=== PATIENT | female | born 1995 | race Hispanic/Latino ===

== ENCOUNTER 2018-04-27 14:34 | Emergency (ER) | payer OTHER ==
[2018-04-27] MEDS ORDERED: Dextrose 5%/0.45% NS 1,000 ML IV SCH (15:15)
--- NOTE | 2018-04-27 15:31 | ED PDOC ---
HPI: Female Pain Time Seen by Provider: 04/27/18 14:53 Chief Complaint (Nursing): Female Genitourinary Chief Complaint (Provider): Female Genitourinary History Per: Patient History/Exam Limitations: no limitations Onset/Duration Of Symptoms: Days (x 1), Waxing/Waning Current Symptoms Are (Timing): Still Present Quality Of Discomfort: Sharp, "Pain" Associated Symptoms: Chills. denies: Fever, Nausea, Vomiting, Diarrhea Additional Complaint(s): 22 year old female with no significant past medical history presents to the emergency department with severe abdominal pain onset last night. She reports sharp pain in intermittent episodes for weeks but constant since this morning with no radiation. There is pain when she attempts to lie on side. Patient went to her hot braider this morning who tried to conduct a pelvic exam but due to pain patient could not finish exam. Upon examination, hot braider believes her bladder was swollen. Spa Coordinator prescribed some medication for UTI symptoms. Urine sample was collected but no results given yet. No ultrasound was done. Spa Coordinator advised her to visit the ED. LNMP was 2-3 weeks ago and most recent sexual activity was 04/25. Patient noted increase in urination and chills last night, but denies any dysuria, headache, dizziness, nausea, diarrhea, vomiting, fever, or vaginal bleeding or discharge. PMD: Dr. Rivas Abnormal Vaginal Bleeding: No Last Menstral Period: 2-3 weeks ago : 0 Para: 0 Miscarriage: 0 Past Medical History Reviewed: Historical Data, Nursing Documentation, Vital Signs Vital Signs: Last Vital Signs Temp 97.8 F 04/27/18 14:40 Pulse 104 H 04/27/18 14:40 Resp 16 04/27/18 14:40 BP 137/97 H 04/27/18 14:40 Pulse Ox 96 04/27/18 14:40 - Medical History PMH: No Chronic Diseases - Surgical History Surgical History: No Surg Hx - Family History Family History: States: No Known Family Hx - Social History Current smoker - smoking cessation education provided: No Alcohol: Occasional Drugs: Denies - Allergies Allergies/Adverse Reactions: Allergies Allergy/AdvReac Type Severity Reaction Status Date / Time amoxicillin Allergy RASH Verified 04/27/18 14:40 Review of Systems ROS Statement: Except As Marked, All Systems Reviewed And Found Negative Constitutional: Positive for: Chills (last night). Negative for: Fever Genitourinary Female: Positive for: Frequency, Pelvic Pain. Negative for: Dysuria, Vaginal Discharge, Vaginal Bleeding Physical Exam - Reviewed Nursing Documentation Reviewed: Yes Vital Signs Reviewed: Yes - Physical Exam Appears: Positive for: No Acute Distress Head Exam: Positive for: ATRAUMATIC, NORMOCEPHALIC Skin: Positive for: Normal Color. Negative for: Rash Eye Exam: Positive for: Normal appearance Neck: Positive for: Painless ROM Gastrointestinal/Abdominal: Positive for: Soft, Tenderness (mild tenderness on the left and more tenderness on the right). Negative for: Rebound (bilateral) Back: Negative for: L CVA Tenderness, R CVA Tenderness - Laboratory Results Result Diagrams: 04/27/18 15:25 04/27/18 15:25 - ECG O2 Sat by Pulse Oximetry: 96 (RA) Pulse Ox Interpretation: Normal Medical Decision Making Medical Decision Making: Time: 15:09 Intial Impression: Pelvic Pain Differential Diagnosis include but are not limited to tubo-ovarian abscess, UTI , ruptured cyst, appendicitis Initial Plan: --CMP --Urine dipstick --U preg --CBC with differentials --Dextrose 5% IV 125 mls/hr --Toradol 30 mg IV --Urine culture --Urinalysis --Transvag US Time: 15:50 --Urine dipstick was negative. No white blood cells or nitrites were detected. No . Scribe Attestation: Documented by Geni Edgar, acting as a scribe for Alejandrina Duenas MD Provider Scribe Attestation: All medical record entries made by the Scribe were at my direction and personally dictated by me. I have reviewed the chart and agree that the record accurately reflects my personal performance of the history, physical exam, medical decision making, and the department course for this patient. I have also personally directed, reviewed, and agree with the discharge instructions and disposition. Disposition - Clinical Impression Clinical Impression: Pelvic pain - Patient ED Disposition Is Patient to be Admitted: Transfer of Care - Disposition Disposition: Transfer of Care Disposition Time: 16:46 Condition: STABLE Forms: [employer] [facility] (Kittitian) Patient Signed Over To: Saurabh Ramírez (pending US pelvis) - POA Present On Arrival: None
[2018-04-27 15:57] LABS: BASO # 0.1 K/uL (0.0-0.2); BASO % 0.8 % (0.0-2.0); EOS # 0.1 K/uL (0.0-0.7); EOS % 1.1 % (0.0-4.0); HEMOGLOBIN 13.2 g/dL (12.0-16.0); LYMPH # 2.7 K/uL (1.0-4.3); LYMPH % 28.8 % (20.0-40.0); MEAN CELL VOLUME 92.2 fl (81.0-99.0); MEAN CORPUSCULAR HEMOGLOBIN 31.3 pg (27.0-31.0); MEAN CORPUSCULAR HGB CONC 33.9 g/dL (33.0-37.0); MEAN PLATELET VOLUME 8.4 fl (7.2-11.7); MONO # 0.7 K/uL (0.0-0.8); MONO % 7.2 % (0.0-10.0); NEUT # 5.8 K/uL (1.8-7.0); NEUT % 62.1 % (50.0-75.0); NRBC % 0.1 % (0.0-0.0); RBC 4.23 Mil/uL (3.80-5.20); RED CELL DISTRIBUTION WIDTH 13.2 % (11.5-14.5); WHITE BLOOD COUNT 9.3 K/uL (4.8-10.8)
[2018-04-27 16:02] LABS: ALBUMIN 4.6 g/dL (3.5-5.0); BLOOD UREA NITROGEN 13 mg/dl (7-17); CALCIUM 9.7 mg/dL (8.4-10.2); GFR AFRICAN-AMERICAN > 60; GFR NON-AFRICAN AMERICAN > 60
[2018-04-27 16:03] LABS: ALB/GLOB RATIO 1.3 (1.0-2.1); ALT/SGPT 34 U/L (9-52); AST/SGOT 36 U/L (14-36)
[2018-04-27 16:13] LABS: SQUAMOUS EPITHIAL 1 /hpf (0-5); URINE BACTERIA RARE (<OCC); URINE BILIRUBIN NEGATIVE (NEGATIVE); URINE BLOOD NEGATIVE (NEGATIVE); URINE CLARITY CLEAR (Clear); URINE COLOR YELLOW (YELLOW); URINE GLUCOSE (UA) NEG (Normal); URINE LEUKOCYTE ESTERASE NEG Leu/uL (Negative); URINE PROTEIN NEGATIVE (NEGATIVE); URINE UROBILINOGEN 0.2-1.0 mg/dL (0.2-1.0)
--- NOTE | 2018-04-27 17:13 | US ---
HISTORY: Right pelvic pain/tenderness. Duration of symptoms: Less than 24 hours. Menstrual status: LMP 04/08/2018. Regular cycles COMPARISON: None available. TECHNIQUE: Transvaginal only. Real -time technique with 2D, duplex and color Doppler FINDINGS: UTERUS: Measures 2.4 x 3.7 x 4.9 cm. Normal in size and appearance. No fibroid or other mass lesion seen. ENDOMETRIUM: Measures 3.7 mm in diameter. Trace fluid in the endometrial canal. Otherwise unremarkable CERVIX: No cervical abnormality identified. RIGHT OVARY: Measures 1.5 x 2 x 2.5 cm. No solid mass. Normal flow. Multiple subcentimeter follicles. Solitary dominant follicle 1.2 x 1.5 cm LEFT OVARY: Measures 1.5 x 2.7 x 2.7 cm. No solid mass. Normal flow. Multiple subcentimeter follicles. FREE FLUID: No significant free fluid noted. OTHER FINDINGS: None. IMPRESSION: No significant or acute findings to account for/ related to the clinical presentation.
[2018-04-27] MEDS ORDERED: Iohexol 240 (50 ml) PO ONE (17:15)
--- NOTE | 2018-04-27 17:18 | ED PDOC ---
- Laboratory Results Result Diagrams: 04/27/18 15:25 04/27/18 15:25 Interpretation Of Abn Labs: no acute Urine dip results: Negative for: Leukocyte Esterase - ECG O2 Sat by Pulse Oximetry: 96 (RA) Pulse Ox Interpretation: Normal - CT Scan/US ct Other Rad Studies (CT/US): Read By Radiologist Other Rad Interpretation: no acute - Progress ED Course And Treament: 1714: Took over care from Dr. Duenas. Fu on US. Here with pelvic pain. Seen by her OBGYN and sent to the ER for further evaluation. 1719: Still tenderness mild RLQ. Will CT for further evaluation. 2131: Stable. AAOx3. Pain controlled. Fu with pcp. No acute findings in evaluation. Pt. to see her obgyn in 3 days. Tolerated PO. Disposition Counseled Patient/Family Regarding: Studies Performed, Diagnosis, Need For Followup, Rx Given - Clinical Impression Clinical Impression: Pelvic pain - POA Present On Arrival: None - Disposition [facility] - 04[facility]18 [facility] [Outside] - 04/28/18 Disposition: Routine/Home Disposition Time: 21:33 Condition: STABLE Additional Instructions: Return if not better in 3 days. Prescriptions: Ibuprofen [Motrin] 600 mg PO TID 7 Days tab Instructions: Acute Pelvic Pain Forms: [facility] ([place]raltarian), [facility] ED School/Work Excuse
--- NOTE | 2018-04-27 17:23 | ED PDOC ---
- Laboratory Results Result Diagrams: 04/27/18 15:25 04/27/18 15:25 - ECG O2 Sat by Pulse Oximetry: 96 (RA) Medical Decision Making Medical Decision Making: Time: 17:00 --Transfer of care to de, pending transvaginal US. Disposition - Clinical Impression Clinical Impression: Pelvic pain - Disposition Condition: STABLE Forms: [facility] (Hebrew)
[2018-04-27] MEDS ORDERED: Iohexol 240 (50 ml) ONE (17:41)
[2018-04-27] MEDS ORDERED: Sodium Chloride 0.9% 50 ML IV ONE (19:26)
[2018-04-27] MEDS ORDERED: Iohexol 300 100 ML IJ ONE (19:26)
[2018-04-27 20:12] VITALS: RESP 24
--- NOTE | 2018-04-27 21:06 | CT ---
EXAM: CT Abdomen and Pelvis With Intravenous Contrast EXAM DATE/TIME: 04/27/2018 5:15 PM CLINICAL HISTORY: 22 years old, female; Pain; Abdominal pain and other: Pelvic; Generalized; Additional info: Abd pain TECHNIQUE: Axial computed tomography images of the abdomen and pelvis with intravenous contrast. All CT scans at this facility use one or more dose reduction techniques, viz.: automated exposure control; ma/kV adjustment per patient size (including targeted exams where dose is matched to indication; i.e. head); or iterative reconstruction technique. Coronal and sagittal reformatted images were created and reviewed. CONTRAST: 85 mL of [id number] administered intravenously. COMPARISON: US - TRANSVAGINAL 2018-04-27 16:32 FINDINGS: Lung bases: Heart size is normal. There is a small hiatal hernia. There is minimal atelectasis at the lung bases ABDOMEN: Liver: unremarkable Gallbladder and bile ducts: unremarkable Pancreas: unremarkable Spleen: unremarkable Adrenals: unremarkable Kidneys and ureters: unremarkable Stomach and bowel: Stomach is partially distended. Rotation is normal. There is no small bowel obstruction. There is contrast throughout the small bowel. Ileocecal region is unremarkable. Appendix and terminal ileum are unremarkable. There is moderate stool and air throughout the colon. PELVIS: Appendix: See stomach and bowel Bladder: unremarkable Reproductive: Uterus and adnexal structures are unremarkable. ABDOMEN and PELVIS: Intraperitoneal space: There is a small amount of free fluid in the pelvis.There is no free air. Bones/joints: There are no acute osseous abnormalities. Soft tissues: unremarkable Vasculature: Vascular structures are unremarkable. Lymph nodes: There is shotty adenopathy. IMPRESSION: No acute solid visceral or bowel abnormality, no CT findings of appendicitis; small amount of fluid in the cul-de-sac, physiologic versus recent cyst rupture
[2018-04-27 21:55] VITALS: BP 140/71; PULSE 89; TEMP 99; O2SAT 99
== END 2018-04-27 21:54 | disposition home or self-care (01) ==
LOC: H.ER 14:34
DX: R10.2 Pelvic and perineal pain (principal)
CPT/HCPCS: 74177; 76830; 80053; 81003; 81025; 85025; 87086; 96374; 99285; J1885; J7042; Q9966; Q9967